=== PATIENT | female | born 1990 ===

== ENCOUNTER 2022-09-05 06:42 | Day surgery (SDC) | payer OTHER ==
[2022-09-05] MEDS ORDERED: PERCOCET 5-3251 EACH PO (10:16)
== END 2022-09-05 12:35 | disposition home or self-care (01) ==
LOC: CIR.AMB 06:42
PROVIDERS: ATTEND Obstetrics & Gynecology Gynecology
DX: Z30.2 Encounter for sterilization (principal); Z88.6 Allergy status to analgesic agent